=== PATIENT | female | born 1965 | race Caucasian/White ===

== ENCOUNTER 2016-08-24 18:08 | Observation (INO) | payer BC ==
[2016-08-24] MEDS ORDERED: Famotidine 20 MG/2 ML SDV IVPUSH ONE (18:18)
[2016-08-24] MEDS ORDERED: Clopidogrel 75 MG Tab PO ONE (18:18)
[2016-08-24] MEDS ORDERED: Sodium Chloride 0.9% 10 ML Syringe FLUSH PRN ×2 (18:18→19:47)
[2016-08-24] MEDS ORDERED: Aspirin 81 MG Tab.Chew CHEW ONE (18:18)
[2016-08-24] MEDS ORDERED: Metoprolol Tartrate 5 MG/5 ML SDV IVPUSH ONE (18:18)
--- NOTE | 2016-08-24 18:18 | EDM.PDOC ---
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 She is due for her screening colonoscopy, which was recommended and should be conducted once cardiac status has been determined. In addition patient is also due for her mammogram. (6) Tobacco abuse counseling SNOMED Code(s): 704330432, 155900303, 416442733 Code(s): Z71.6 - TOBACCO ABUSE COUNSELING Status: Chronic Priority: Medium Annotation/Comment:: Tobacco cessation was strongly encouraged both to the patient and her . Tobacco cessation information to be provided at discharge (7) Mixed anxiety depressive disorder SNOMED Code(s): 603244678 Code(s): F41.8 - OTHER SPECIFIED ANXIETY DISORDERS Status: Chronic Priority: Medium Current Visit: Yes Annotation/Comment:: Stable by history with no current medical therapy - Problem List Review Problem List Initiated/Reviewed/Updated: Yes - My Orders Last 24 Hours: My Active Orders 08/24/16 18:18 Cardiac Monitoring [RC] . DIRECTED EKG Documentation Completion [RC] ASDIRECTED Oxygen Therapy, ED [RC] CONTINUOUS Peripheral IV Care [RC] . DIRECTED Pulse Oximetry [RC] CONTINUOUS Up With Assistance [RC] PFP Vital Signs [RC] PFP Chest 1V Frontal [CR] Stat Sodium Chloride 0.9% [Saline Flush] 10 ml FLUSH ASDIRECTED PRN Obtain Past Medical Record [OM.PC] Urgent Peripheral IV Insertion Adult [OM.PC] Stat Resuscitation Status Stat 08/24/16 Breakfast Nothing per Oral Now Diet [DIET] - Assessment/Plan Admission H&P: Please use this note as an admission H&P Last 24 Hours: My Active Orders 08/24/16 18:18 Cardiac Monitoring [RC] . DIRECTED EKG Documentation Completion [RC] ASDIRECTED Oxygen Therapy, ED [RC] CONTINUOUS Peripheral IV Care [RC] . DIRECTED Pulse Oximetry [RC] CONTINUOUS Up With Assistance [RC] PFP Vital Signs [RC] PFP Chest 1V Frontal [CR] Stat Sodium Chloride 0.9% [Saline Flush] 10 ml FLUSH ASDIRECTED PRN Obtain Past Medical Record [OM.PC] Urgent Peripheral IV Insertion Adult [OM.PC] Stat Resuscitation Status Stat 08/24/16 Breakfast Nothing per Oral Now Diet [DIET] Assessment:: As above Plan: As above. Extensive precautions were given to the patient and her , who are in agreement with the treatment plan. See Patient Instructions for further treatment and plan. The patient's condition is stable enough for observation status and general supervision. Adina dee physician assumes care in a.m.
[2016-08-24 18:55] LABS: CHLORIDE,CL 105 mmol/L (98-107); SODIUM,NA 138 mmol/L (136-145)
[2016-08-24] MEDS ORDERED: Acetaminophen 325 MG Tab PO PRN (19:47)
[2016-08-24] MEDS ORDERED: Temazepam 15 MG Cap PO PRN (19:47)
[2016-08-24] MEDS ORDERED: Metoprolol Succinate 25 MG Tab.ER PO SCH (20:00)
[2016-08-25 08:14] LABS: CHLORIDE,CL 107 mmol/L (98-107); SODIUM,NA 140 mmol/L (136-145)
[2016-08-25 08:24] VITALS: BP 97/62
--- NOTE | 2016-08-25 09:08 | PCM.DCSUM1 ---
Discharge Summary - Hospital Course Free Text/Narrative:: Pt stable overnight. No ectopy and patient's sense of palpitations has resolved. Pt stable during admit Will follow up in clinic for Holter monitor - Discharge Data Discharge Date: 08/25/16 Discharge Disposition: Home, Self-Care 01 Condition: Good - Discharge Diagnosis/Problem(s) (1) Tachycardia SNOMED Code(s): 7960046 ICD Code: R00.0 - TACHYCARDIA, UNSPECIFIED Status: Acute Priority: High Current Visit: Yes Onset Date: 08/24/16 Problem Details: Probable sinus tachycardia with patient drinking only mild amounts of caffeine with no recent stimulants, etc. TSH is normal today.. Good response to low-dose IV Lopressor. Initiate Toprol XL on admission, which should be beneficial as cardiac prophylaxis. Will discharge patient home on Toprol XL - Patient Summary/Data Recommended Follow-up Testing/Procedures: Needs Holtor monitor - Patient Instructions Diet: Usual Diet as Tolerated Activity: As Tolerated Driving: May Drive Today Showering/Bathing: May Shower Other/Special Instructions: Return if having chest pain or increased heart rate - Discharge Plan Prescriptions/Med Rec: Metoprolol Succinate [Toprol XL] 25 mg PO BEDTIME #10 tab.er Home Medications: Home Meds Folic Acid/Multivit-Min/Lutein [Multi-Vitamin Gummies] 1 tab.chew PO DAILY 04/11 [History] Loratadine [Claritin] 10 mg PO DAILY 04/11/16 [History] Acetaminophen [Tylenol] 650 mg PO Q4H PRN #0 tablet 08/25/16 [Rx] Metoprolol Succinate [Toprol XL] 25 mg PO BEDTIME #10 tab.er 08/25/16 [Rx] Patient Handouts: Nonspecific Chest Pain, [id number] Forms: ED Department Discharge Referrals: Drake Cheney NP [Nurse Practitioner] - (Follow up in clinic for post hospitalization visit) - General Info Date of Service: 08/25/16 - Review of Systems General: Reports: No Symptoms HEENT: Reports: no symptoms Pulmonary: Reports: no symptoms Cardiovascular: Reports: No Symptoms Gastrointestinal: Reports: No symptoms Genitourinary: Reports: no symptoms Musculoskeletal: Reports: no symptoms Skin: Reports: no symptoms Neurological: Reports: No Symptoms Psychiatric: Reports: no symptoms - Patient Data Vitals - Most Recent: Last Vital Signs Temp 36.4 C 08/25/16 08:00 Pulse 73 08/25/16 08:00 Resp 18 08/25/16 08:00 BP 97/62 08/25/16 08:00 Pulse Ox 99 08/25/16 08:00 Weight - Most Recent: 70.987 kg I&O - Last 24 hours: Intake & Output 08/24/16 08/25/16 08/25/16 18:59 02:59 10:59 Intake Total 50 Output Total 350 400 Balance -300 -400 Lab Results - Last 24 hrs: Laboratory Results - last 24 hr 08/25/16 08/25/16 08/25/16 Range/Units 07:10 07:10 07:10 WBC 8.0 (4.0-10.2) K/uL RBC 4.10 (3.77-5.09) M/uL Hgb 13.0 (11.7-15.5) g/dL Hct 39.4 (34.0-46.0) % MCV 96.1 (84.0-98.0) fL MCH 31.7 (28.2-33.3) pg MCHC 33.0 (31.7-36.0) g/dL RDW 13.0 (11.2-14.1) % Plt Count 224 (150-350) K/uL Neut % (Auto) 60.5 (45.0-80.0) % Lymph % (Auto) 32.7 (10.0-50.0) % [place] % (Auto) 5.6 (2.0-14.0) % Eos % (Auto) 1.1 (0.0-5.0) % Baso % (Auto) 0.1 (0.0-2.0) % Neut # (Auto) 4.82 (1.40-7.00) K/uL Lymph # (Auto) 2.61 (0.50-3.50) K/uL [place] # (Auto) 0.45 (0.00-1.00) K/uL Eos # (Auto) 0.09 (0.00-0.50) K/uL Baso # (Auto) 0.01 (0.00-0.20) K/uL Sodium 140 (136-145) mmol/L Potassium 3.8 (3.5-5.1) mmol/L Chloride 107 (98-107) mmol/L Carbon Dioxide 26.8 (21.0-32.0) mmol/L BUN 14 (7-18) mg/dL Creatinine 0.81 (0.51-1.17) mg/dL Est Cr Clr Drug Dosing 69.36 mL/min Estimated GFR (MDRD) > 60 mL/min Glucose 88 (74-106) mg/dL Hemoglobin A1c 5.3 (4.3-5.7) % Calcium 8.7 (8.5-10.1) mg/dL Total Bilirubin 0.4 (0.2-1.0) mg/dL AST 16 (15-37) U/L ALT 24 (12-78) U/L Alkaline Phosphatase 73 (46-116) IU/L Creatine Kinase 81 (26-308) U/L Creatine Kinase Index 1.4 (0.0-2.5) % CK-MB (CK-2) 1.10 (0.00-3.60) ng/mL Troponin I 0.000 (0.000-0.056) ng/mL Total Protein 6.3 L (6.4-8.2) g/dL Albumin 3.4 (3.4-5.0) g/dL Triglycerides 130 (30-150) mg/dL Cholesterol 196 (100-200) mg/dL LDL Cholesterol, Calc 113 H (0-100) mg/dL HDL Cholesterol 57 (40-60) mg/dL Med Orders - Current: Current Medications Acetaminophen (Tylenol) 650 mg PO Q4H PRN PRN Reason: Pain (Mild 1-3)/fever Metoprolol Succinate (Toprol Xl) 25 mg PO BEDTIME [facility] Last Admin: 08/24/16 20:50 Dose: 25 mg Sodium Chloride (Saline Flush) 10 ml FLUSH ASDIRECTED PRN PRN Reason: Keep Vein Open Sodium Chloride (Saline Flush) 10 ml FLUSH Q12H PRN PRN Reason: Keep Vein Open Temazepam (Restoril) 15 mg PO BEDTIME PRN PRN Reason: Insomnia Last Admin: 08/24/16 23:24 Dose: 15 mg Discontinued Medications Aspirin (Aspirin) 324 mg CHEW ONETIME ONE Stop: 08/24/16 18:19 Last Admin: 08/24/16 18:30 Dose: 324 mg Clopidogrel Bisulfate (Plavix) 300 mg PO ONETIME ONE Stop: 08/24/16 18:19 Last Admin: 08/24/16 18:31 Dose: 300 mg Famotidine (Pepcid) 40 mg IVPUSH ONETIME ONE Stop: 08/24/16 18:19 Last Admin: 08/24/16 18:33 Dose: 40 mg Metoprolol Tartrate (Lopressor) 2.5 mg IVPUSH ONETIME ONE Stop: 08/24/16 18:19 Last Admin: 08/24/16 18:38 Dose: 2.5 mg - Exam General: Reports: alert, oriented Lungs: Reports: Clear to auscultation Cardiovascular: Reports: Regular Rate, Regular Rhythm Abdomen: Reports: soft Extremities: Reports: no edema *Q Meaningful Use (DIS) - VTE *Q VTE Criteria *Q: - Stroke *Q Stroke Criteria *Q: - AMI *Q AMI Criteria *Q:
== END 2016-08-25 10:10 | disposition home or self-care (01) ==
LOC: LL.ED 18:08 → LL.MS 19:26
PROVIDERS: ADMIT Family Medicine; ATTEND Family Medicine
DX: R00.0 Tachycardia, unspecified (principal); R07.89 Other chest pain; R42 Dizziness and giddiness; J43.1 Panlobular emphysema; K21.9 Gastro-esophageal reflux disease without esophagitis; F41.8 Other specified anxiety disorders; G47.30 Sleep apnea, unspecified; F17.210 Nicotine dependence, cigarettes, uncomplicated; M19.90 Unspecified osteoarthritis, unspecified site; Z79.899 Other long term (current) drug therapy; Z71.6 Tobacco abuse counseling; Z88.8 Allergy status to other drugs, medicaments and biological substances; Z86.73 Personal history of transient ischemic attack (TIA), and cerebral infarction without residual deficits
CPT/HCPCS: 36415; 71010; 80053; 80061; 82272; 82550; 82553; 83036; 83605; 83735; 83880; 84443; 84484; 84550; 85025; 85379; 85610; 85730; 86318; 93005; 96374; 96375; 99285; A9270; G0378; J3490; S0028

== ENCOUNTER 2019-07-24 08:38 | Day surgery (SDC) | payer OTHER ==
[2019-07-24] MEDS ORDERED: Sodium Chloride 0.9% 10 ML Syringe FLUSH PRN (08:45)
[2019-07-24] MEDS ORDERED: Midazolam 1 MG/ML 2 ML SDV ONE ×2 (08:53→11:02)
[2019-07-24] MEDS ORDERED: Propofol 200 MG/20 ML SDV ONE ×2 (08:53→11:02)
[2019-07-24] MEDS: Lactated Ringers 1,000 ML IV SCH (09:51)
--- NOTE | 2019-07-24 10:02 | PCM.HPR ---
H & P Addendum review - H & P Addendum Review Date of Original H & P: 07/17/19 Date Reviewed: 07/24/19 Time Reviewed: 10:02 Patient was Examined: No Changes
--- NOTE | 2019-07-24 10:45 | PCM.OPNOTE ---
- General Post-Op/Procedure Note Date of Surgery/Procedure: 07/24/19 Operative Procedure(s): Colonoscopy with polypectomy Findings: polyps; sig tics Pre Op Diagnosis: Pos Cologuard Post-Op Diagnosis: Same Anesthesia Technique: MAC Primary Surgeon: Aman Shea Anesthesia Provider: Merry Moore EBMelvin in mLs: 0 Complications: None Condition: Good
[2019-07-24 11:18] VITALS: BP 119/81; PULSE 73
--- NOTE | 2019-07-24 14:48 | OR ---
Date of Procedure: 07/24/2019 PREOPERATIVE DIAGNOSIS: Positive Cologuard. POSTOPERATIVE DIAGNOSIS: 1. Colon polyps. 2. Sigmoid diverticulosis. PROCEDURE: Colonoscopy with polypectomy. ANESTHESIA: IV sedation. PROCEDURE IN DETAIL: Patient was brought to the procedure room where she was placed on her left side and IV sedation administered. Digital rectal exam was performed which was normal. Colonoscope was inserted and advanced to the level of the cecum with some difficulty getting through a tortuous sigmoid colon, requiring pressure on the abdomen. I was then able to reach the cecum which was confirmed by identifying the appendiceal lumen and ileocecal valve. Prep was good with some thick liquid stool remaining that was mostly irrigated and suctioned. Upon withdrawing the scope, the ascending, transverse, and descending colon were normal in appearance. At 30 cm in the sigmoid colon, there was an 8 mm semipedunculated polyp, removed with a cautery snare and retrieved in the polyp trap. At 20 cm, there were 2 adjacent sessile polyps measuring 6 mm and 8 mm in diameter that were also removed with the cautery snare. Multiple small diverticula were also noted. In the rectum at 3 cm from the anal verge, there was an 8 mm sessile polyp, removed with a cautery snare and retrieved in the polyp trap. Retroflexion was normal. Air was removed and the scope withdrawn. Patient tolerated the procedure well and returned to recovery in stable condition. Patient will be contacted with the pathology report when it returns. If any of the polyps are adenomatous, she should undergo a repeat colonoscopy again in 3 years. If they are all hyperplastic, she could wait 5 years since it sounds that she has two sisters who have had colon polyps. SEVERO GREENFIELD MD /[id number]
== END 2019-07-24 12:15 | disposition home or self-care (01) ==
LOC: LL.SDS 08:38
PROVIDERS: ATTEND Surgery
DX: D12.5 Benign neoplasm of sigmoid colon (principal); K62.1 Rectal polyp; K57.30 Diverticulosis of large intestine without perforation or abscess without bleeding; E78.5 Hyperlipidemia, unspecified; E66.3 Overweight; F17.210 Nicotine dependence, cigarettes, uncomplicated; Z88.8 Allergy status to other drugs, medicaments and biological substances; Z68.28 Body mass index [BMI] 28.0-28.9, adult
CPT/HCPCS: 45385; J2250; J2704; J7120

== ENCOUNTER 2020-02-26 17:55 | Emergency (ER) | payer OTHER ==
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
[2020-02-26] MEDS ORDERED: Ketorolac 60 MG/2 ML SDV IM ONE (18:17)
[2020-02-26 18:49] VITALS: BP 161/106; PULSE 80
== END 2020-02-26 19:15 | disposition home or self-care (01) ==
LOC: LL.ED 17:55
DX: J43.1 Panlobular emphysema (principal); M89.49 Other hypertrophic osteoarthropathy, multiple sites; F41.8 Other specified anxiety disorders; K21.9 Gastro-esophageal reflux disease without esophagitis; Z71.6 Tobacco abuse counseling; F17.210 Nicotine dependence, cigarettes, uncomplicated; R03.0 Elevated blood-pressure reading, without diagnosis of hypertension; Z88.8 Allergy status to other drugs, medicaments and biological substances; Z88.1 Allergy status to other antibiotic agents; J44.9 Chronic obstructive pulmonary disease, unspecified
CPT/HCPCS: 72110; 96372; 99283-25; J1885; J3360

== ENCOUNTER 2020-11-21 15:21 | Emergency (ER) | payer OTHER ==
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
[2020-11-21 16:40] VITALS: BP 127/70; PULSE 97
== END 2020-11-21 16:30 | disposition home or self-care (01) ==
LOC: LL.ED 15:21
DX: S93.601A Unspecified sprain of right foot, initial encounter (principal); J44.9 Chronic obstructive pulmonary disease, unspecified; Z88.8 Allergy status to other drugs, medicaments and biological substances; Z88.1 Allergy status to other antibiotic agents; X50.1XXA Overexertion from prolonged static or awkward postures, initial encounter
CPT/HCPCS: 73600-RT; 73630-RT; 99283-25

== ENCOUNTER 2021-08-23 14:06 | Emergency (ER) | payer OTHER ==
[2021-08-23 15:19] LABS: ANION GAP 10.8 meq/L (7-15); CHLORIDE,CL 106 mmol/L (98-107); SODIUM,NA 143 mmol/L (136-145)
[2021-08-23 16:31] VITALS: BP 128/89; PULSE 76
== END 2021-08-23 16:30 | disposition home or self-care (01) ==
LOC: LL.ED 14:06
DX: R41.0 Disorientation, unspecified (principal); I10 Essential (primary) hypertension; J44.9 Chronic obstructive pulmonary disease, unspecified; K21.9 Gastro-esophageal reflux disease without esophagitis; Z72.0 Tobacco use; Z79.899 Other long term (current) drug therapy; Z88.8 Allergy status to other drugs, medicaments and biological substances
CPT/HCPCS: 36415; 70450; 71045; 80053; 84484; 85025; 93005; 99284; 99285-25

== ENCOUNTER 2025-01-30 13:32 | Emergency (ER) | payer BC, OTHER ==
[2025-01-30 14:03] LABS: BASOPHILS ABSOLUTE AUTO 0.02 K/uL (0.00-0.20); BASOPHILS PERCENT AUTO 0.3 % (0.0-2.0); EOSINOPHILS ABSOLUTE AUTO 0.09 K/uL (0.00-0.50); EOSINOPHILS PERCENT AUTO 1.4 % (0.0-5.0); IMMATURE GRAN ABSOLUTE AUTO 0.01 10^3/uL (0.00-0.04); IMMATURE GRAN PERCENT AUTO 0.2 % (0.0-0.4); LYMPHOCYTES ABSOLUTE AUTO 2.63 K/uL (0.50-3.50); LYMPHOCYTES PERCENT AUTO 40.3 % (10.0-50.0); MONOCYTES ABSOLUTE AUTO 0.40 K/uL (0.00-1.00); MONOCYTES PERCENT AUTO 6.1 % (2.0-14.0); NEUTROPHILS ABSOLUTE AUTO 3.38 K/uL (1.40-7.00); NEUTROPHILS PERCENT AUTO 51.7 % (45.0-80.0); PLATELET COUNT,PLT 245 K/uL (150-350); RED BLOOD CELL COUNT 3.42 M/uL (3.77-5.09); RED CELL DISTRIBUTION WIDTH 13.3 % (11.2-14.1); WHITE BLOOD CELL COUNT,WBC 6.5 K/uL (4.0-10.2)
[2025-01-30 14:27] LABS: INR 1.0 (0.9-1.1); PTT,PARTIAL THROMBOPLSTIN TIME 27.4 SEC (23.8-34.4)
[2025-01-30 14:29] LABS: ALANINE AMINOTRANSFERASE,ALT 27 U/L (12-78); ASPARTATE AMNIOTRANSFERASE,AST 16 U/L (15-37); BILIRUBIN TOTAL 0.3 mg/dL (0.2-1.0); BLOOD UREA NITROGEN,BUN 17 mg/dL (7-18); CARBON DIOXIDE,CO2 29.6 mmol/L (21.0-32.0); CHLORIDE,CL 108 mmol/L (98-107); CREATININE 0.90 mg/dL (0.51-1.17); GLUCOSE RANDOM 84 mg/dL (70-99); POTASSIUM,K 3.7 mmol/L (3.5-5.1); PROTEIN TOTAL,TP 6.8 g/dL (6.4-8.2); SODIUM,NA 145 mmol/L (136-145)
[2025-01-30 14:30] LABS: ESTIMATED GFR 73 mL/min (>=60)
[2025-01-30 14:54] VITALS: BP 118/87; PULSE 75
[2025-01-30] MEDS: Sodium Chloride 0.9% 10 ML Syringe FLUSH PRN (15:05)
== END 2025-01-30 15:40 | disposition home or self-care (01) ==
LOC: LL.ED 13:32
DX: K92.2 Gastrointestinal hemorrhage, unspecified (principal); J44.9 Chronic obstructive pulmonary disease, unspecified; Z90.710 Acquired absence of both cervix and uterus; Z88.1 Allergy status to other antibiotic agents; Z88.8 Allergy status to other drugs, medicaments and biological substances
CPT/HCPCS: 36415; 80053; 82272; 85025; 85610; 85730; 96374; 99284; 99284-25; J2470